=== PATIENT | male | born 1945 | race Caucasian/White ===

== ENCOUNTER → 2020-12-08 | Outpatient (CLI) | payer MEDICARE ==
[~2020-12-08] MED LIST: ASPIRIN EC81 MG PO; BRILINTA 90 MG90 MG PO; COZAAR100 MG PO; CRESTOR10 MG PO; LOPRESSOR 25 MG25 MG PO; NITROSTAT0.4 MG SL
== END ==
LOC: EXRD 12:54
DX: N28.1 Cyst of kidney, acquired (principal)
CPT/HCPCS: 76775